=== PATIENT | male | born 1945 | race Caucasian/White ===

== ENCOUNTER 2017-10-27 07:06 | Outpatient (CLI) | payer MEDICARE, OTHER ==
--- NOTE | 2017-10-27 07:57 | ULT ---
SONOGRAM RIGHT UPPER QUADRANT: HISTORY: Liver cyst. FINDINGS: Gallbladder is incompletely distended. No stones are visible. Common duct is 0.2 cm. Liver heterog eneous. Simple cysts within the liver measure up to 1.9 cm. Two dominant cysts are evident. No nikko id masses. No free fluid. The spleen, kidneys, and visualized portions of the abdominal aorta, IVC, and pancreas are unremarkable. IMPRESSION: Simple liver cysts right liver lobe. No solid masses. POS: [facility]
== END 2017-10-27 07:07 | disposition home or self-care (01) ==
LOC: SCSULT 07:06
PROVIDERS: ATTEND Specialist
DX: K76.89 Other specified diseases of liver (principal)
CPT/HCPCS: 76705

== ENCOUNTER 2020-05-23 14:40 | Outpatient (CLI) | payer MEDICARE | END 2020-05-23 14:41 | disposition home or self-care (01) | LOC: BICRAD 14:40 | PROVIDERS: ATTEND Specialist | DX: S90.112A Contusion of left great toe without damage to nail, initial encounter (principal) ==